=== PATIENT | female | born 1995 | race Caucasian/White ===

== ENCOUNTER 2018-08-18 11:39 | Emergency (ER) | payer OTHER ==
[~2018-08-18] VITALS: Ht 167.6 cm; Wt 56.7 kg
[2018-08-18] MEDS ORDERED: SODIUM CHLORIDE 0.9% 1000ML 1,000 ML IV ONE (12:15)
--- NOTE | 2018-08-18 14:49 | Diagnostic Imaging Report ---
Limited pelvic OB ultrasound History: Patient fainted earlier in the day, no history of bleeding. GA based on outside exam: Unknown. Technique: Limited OB ultrasound was performed to evaluate for heart rate. Findings: There is intrauterine . The cardiac activity is normal and calculated to be 150 bpm. The placenta is located inferiorly and demonstrates complete previa. The measurements are as follows: BPD: 2.5 cm which equals 14 weeks 2 days FL: 1.2 cm which equals 13 weeks 5 days The anatomy was not evaluated. Nuchal lucency was not measured. No pelvic fluid identified. IMPRESSION: Single, live intrauterine estimated at 14 weeks, 2 days. Complete placenta previa. Recommend follow-up with OB service and follow-up ultrasound imaging per protocol. The anatomy was not evaluated on this limited study. Signed by: Dr. Marcela Wing MD on 08/18/2018 2:46 PM
[2018-08-18 15:13] VITALS: BP 108/80
== END 2018-08-18 14:40 | disposition home or self-care (01) ==
LOC: FSED 11:39
DX: R55 Syncope and collapse (principal); E86.0 Dehydration; K52.9 Noninfective gastroenteritis and colitis, unspecified; E86.1 Hypovolemia
CPT/HCPCS: 76801; 80053; 81003; 84484; 85025; 93005; 99284; J7030